=== PATIENT | female | born 1995 | race Caucasian/White ===

== ENCOUNTER → 2018-04-26 | Outpatient (CLI) | payer OTHER, BC ==
[~2018-04-26] MED LIST: AMOX-559 PO; CIPR-214 PO; FLUT16SP19 NS; [UNRECOGNIZED DRUG - OTHER]
== END ==
LOC: LAB 12:53
PROVIDERS: ATTEND Nurse Practitioner Primary Care
DX: N30.01 Acute cystitis with hematuria (principal)
CPT/HCPCS: 87088